=== PATIENT | female | born 1985 | race Caucasian/White ===

== ENCOUNTER → 2016-11-09 | Outpatient (CLI) | payer OTHER ==
[2016-11-09 09:09] LABS: BASOPHIL # 0.1 K/uL (0.0-0.2); BASOPHIL % 0.9 %; EOSINOPHIL # 0.2 K/uL (0.0-0.5); EOSINOPHIL % 3.2 %; HEMATOCRIT 38.8 % (33.0-46.0); HEMOGLOBIN 12.9 g/dL (11.0-15.0); IMMATURE GRANULOCYTE % 0.3 %; LYMPHOCYTE # 1.3 K/uL (0.8-4.0); LYMPHOCYTE % 22.4 %; MCHC 33.2 gm/dL (32.0-36.5); MCV 93.3 fl (83.0-98.0); MONOCYTE # 0.5 K/uL (0.0-1.0); MONOCYTE % 8.4 %; MPV 8.8 fl (9.4-12.4); NEUTROPHIL # (ANC) 3.8 K/uL (1.8-7.8); NEUTROPHIL % 64.8 %; NRBC % 0 /100WBC (0-0.00); PLATELET COUNT 250 K/uL (150-450); RBC 4.16 M/uL (3.50-5.50); RDW-CV 13.2 % (11.9-14.6); WBC 5.9 K/uL (4.0-11.0)
== END | disposition disaster alternative care site (69) ==
LOC: GLAB 08:38
PROVIDERS: Nurse Practitioner
DX: F31.10 Bipolar disorder, current episode manic without psychotic features, unspecified (principal)

== ENCOUNTER → 2016-12-08 | Outpatient (CLI) | payer OTHER ==
[2016-12-08 13:53] LABS: BASOPHIL # 0.1 K/uL (0.0-0.2); BASOPHIL % 0.9 %; EOSINOPHIL # 0.3 K/uL (0.0-0.5); EOSINOPHIL % 3.5 %; HEMATOCRIT 37.2 % (33.0-46.0); HEMOGLOBIN 12.6 g/dL (11.0-15.0); IMMATURE GRANULOCYTE % 0.4 %; LYMPHOCYTE # 1.6 K/uL (0.8-4.0); LYMPHOCYTE % 20.4 %; MCH 31.5 pg (27.0-34.0); MCHC 33.9 gm/dL (32.0-36.5); MONOCYTE # 0.6 K/uL (0.0-1.0); MONOCYTE % 7.3 %; MPV 8.9 fl (9.4-12.4); NEUTROPHIL # (ANC) 5.3 K/uL (1.8-7.8); NEUTROPHIL % 67.5 %; NRBC % 0 /100WBC (0-0.00); PLATELET COUNT 257 K/uL (150-450); RDW-CV 13.2 % (11.9-14.6); WBC 7.8 K/uL (4.0-11.0)
== END | disposition disaster alternative care site (69) ==
LOC: GLAB 13:19
PROVIDERS: Nurse Practitioner
DX: F31.10 Bipolar disorder, current episode manic without psychotic features, unspecified (principal)

== ENCOUNTER → 2017-01-04 | Outpatient (CLI) | payer OTHER ==
[2017-01-04 12:06] LABS: BASOPHIL % 0.6 %; EOSINOPHIL # 0.1 K/uL (0.0-0.5); EOSINOPHIL % 0.8 %; HEMATOCRIT 37.4 % (33.0-46.0); HEMOGLOBIN 12.5 g/dL (11.0-15.0); IMMATURE GRANULOCYTE % 0.3 %; LYMPHOCYTE # 1.3 K/uL (0.8-4.0); LYMPHOCYTE % 18.2 %; MCH 31.3 pg (27.0-34.0); MCHC 33.4 gm/dL (32.0-36.5); MCV 93.7 fl (83.0-98.0); MONOCYTE # 0.5 K/uL (0.0-1.0); MONOCYTE % 6.6 %; MPV 8.9 fl (9.4-12.4); NEUTROPHIL # (ANC) 5.2 K/uL (1.8-7.8); NEUTROPHIL % 73.5 %; NRBC % 0 /100WBC (0-0.00); PLATELET COUNT 263 K/uL (150-450); RBC 3.99 M/uL (3.50-5.50); RDW-CV 13.1 % (11.9-14.6); WBC 7.1 K/uL (4.0-11.0)
== END | disposition disaster alternative care site (69) ==
LOC: GLAB 11:16
PROVIDERS: Nurse Practitioner
DX: F31.10 Bipolar disorder, current episode manic without psychotic features, unspecified (principal)

== ENCOUNTER → 2017-02-07 | Outpatient (CLI) | payer OTHER ==
[2017-02-07 15:23] LABS: BASOPHIL % 0.5 %; EOSINOPHIL # 0.2 K/uL (0.0-0.5); EOSINOPHIL % 2.5 %; HEMATOCRIT 33.6 % (33.0-46.0); HEMOGLOBIN 11.8 g/dL (11.0-15.0); IMMATURE GRANULOCYTE % 0.2 %; LYMPHOCYTE # 1.6 K/uL (0.8-4.0); LYMPHOCYTE % 18.2 %; MCH 32.9 pg (27.0-34.0); MCHC 35.1 gm/dL (32.0-36.5); MCV 93.6 fl (83.0-98.0); MONOCYTE # 0.5 K/uL (0.0-1.0); MONOCYTE % 6.2 %; MPV 8.7 fl (9.4-12.4); NEUTROPHIL # (ANC) 6.3 K/uL (1.8-7.8); NEUTROPHIL % 72.4 %; NRBC % 0 /100WBC (0-0.00); PLATELET COUNT 237 K/uL (150-450); RBC 3.59 M/uL (3.50-5.50); RDW-CV 12.5 % (11.9-14.6); WBC 8.7 K/uL (4.0-11.0)
== END | disposition disaster alternative care site (69) ==
LOC: GLAB 15:01
PROVIDERS: Nurse Practitioner
DX: F31.10 Bipolar disorder, current episode manic without psychotic features, unspecified (principal)

== ENCOUNTER → 2017-03-08 | Outpatient (CLI) | payer OTHER ==
[2017-03-08 10:03] LABS: BASOPHIL % 0.5 %; EOSINOPHIL # 0.2 K/uL (0.0-0.5); EOSINOPHIL % 2.1 %; HEMATOCRIT 34.6 % (33.0-46.0); HEMOGLOBIN 11.6 g/dL (11.0-15.0); IMMATURE GRANULOCYTE # 0.1 K/uL (0.0-0.3); IMMATURE GRANULOCYTE % 1.2 %; LYMPHOCYTE # 1.1 K/uL (0.8-4.0); LYMPHOCYTE % 13.5 %; MCH 31.8 pg (27.0-34.0); MCHC 33.5 gm/dL (32.0-36.5); MCV 94.8 fl (83.0-98.0); MONOCYTE # 0.5 K/uL (0.0-1.0); MONOCYTE % 6.2 %; NEUTROPHIL # (ANC) 6.5 K/uL (1.8-7.8); NEUTROPHIL % 76.5 %; NRBC % 0 /100WBC (0-0.00); PLATELET COUNT 242 K/uL (150-450); RBC 3.65 M/uL (3.50-5.50); RDW-CV 12.6 % (11.9-14.6); WBC 8.5 K/uL (4.0-11.0)
== END | disposition disaster alternative care site (69) ==
LOC: GLAB 09:33
PROVIDERS: Nurse Practitioner
DX: F31.10 Bipolar disorder, current episode manic without psychotic features, unspecified (principal)

== ENCOUNTER → 2017-04-05 | Outpatient (CLI) | payer OTHER ==
[2017-04-05 14:43] LABS: BASOPHIL % 0.4 %; EOSINOPHIL # 0.4 K/uL (0.0-0.5); EOSINOPHIL % 3.7 %; HEMATOCRIT 32.5 % (33.0-46.0); HEMOGLOBIN 11.1 g/dL (11.0-15.0); IMMATURE GRANULOCYTE % 0.3 %; LYMPHOCYTE # 1.4 K/uL (0.8-4.0); LYMPHOCYTE % 13.9 %; MCH 32.6 pg (27.0-34.0); MCHC 34.2 gm/dL (32.0-36.5); MCV 95.6 fl (83.0-98.0); MONOCYTE # 0.6 K/uL (0.0-1.0); MONOCYTE % 6.4 %; MPV 8.8 fl (9.4-12.4); NEUTROPHIL # (ANC) 7.6 K/uL (1.8-7.8); NEUTROPHIL % 75.3 %; NRBC % 0 /100WBC (0-0.00); PLATELET COUNT 227 K/uL (150-450); RDW-CV 12.7 % (11.9-14.6)
== END | disposition disaster alternative care site (69) ==
LOC: GLAB 14:17
PROVIDERS: Nurse Practitioner
DX: F31.10 Bipolar disorder, current episode manic without psychotic features, unspecified (principal)